=== PATIENT | male | born 1945 | race Caucasian/White ===

== ENCOUNTER 2017-08-02 12:34 | Emergency (ER) | payer MEDICARE, BC ==
[~2017-08-02 12:34] MED LIST: ACTOS15 PO; ADVAIR250 INH; ASAB PO; AVANDAMET1 TA4 PO; CARDU4 PO; CELEXA20 PO; CRESTOR20 MG PO; FENOGLIDE120 MG PO; FISH-EPA1000 MG PO; GLUCPH8 PO; LEVAQUIN5T PO; LOFIB160 PO; LOFIBRA160 MG PO; PRIM250 PO; PRIN10 PO; PROVHFA INH; SM FLAX SEED1000 MG OR; SYMBICORT 160/41 INH INH; VITAMIN B-121000 MC1 SL
[2017-08-02 13:35] LABS: BASOPHILS 0.2 %; BASOPHILS ABSOLUTE 0.02 10/3/uL (0.0-0.16); EOSINOPHILS ABSOLUTE 0.19 10/3/uL (0.0-0.53); HEMATOCRIT 37.8 % (40.0-51.0); HEMOGLOBIN 12.4 g/dL (13.6-17.8); IMMATURE GRANULOCYTES 0.2 %; IMMATURE GRANULOCYTES ABSOLUTE 0.02 10/3/uL (0.0-0.11); LYMPHOCYTES 9.8 %; LYMPHOCYTES ABSOLUTE 0.91 10/3/uL (0.67-4.30); MANUAL DIFF NO %; MEAN CORPUS HGB CONC 32.8 g/dL (32.0-36.0); MEAN CORPUSCULAR VOLUME 94.5 fL (80-100); MEAN PLATELET VOLUME 8.8 fL (9.2-13.0); MONOCYTES 6.4 %; NEUTROPHILS 81.4 %; NEUTROPHILS ABSOLUTE 7.57 10/3/uL (2.02-8.40); PLATELET COUNT 235 10/3/uL (150-400); RBC DISTRIBUTION WIDTH 13.4 % (12.0-16.0); WHITE BLOOD CELLS 9.3 10/3/uL (4.5-10.5)
[2017-08-02 13:43] LABS: INTERNATIONAL NORMAL RATI 1.2 UNITS (-); PARTIAL THROMBO TIME 33.3 SEC (22.5-37.2); PROTIME (NOT ORD) 14.7 SEC (12.0-14.5)
[2017-08-02 13:44] LABS: ALLENS TEST Pos; BE (BASE EXCESS) -0.3 MEQ/L (0 +/- 2.5); CARBOXYHEMOGLOBIN 1.7 % (0-3); DEVICE NC; HCO3 (ACTUAL BICARBONATE) 23.7 MEQ/L (23-27); HEMOBLOGIN CONTENT 13.1 G/DL (14-18); INSTRUMENT SERIAL # 8087; METHEMOGLOBIN 0.3 % (0-3); O2 CONTENT 17.3 VOL% (18-24); PCO2 (CO2 TENSION) 37 MMHG (35-45); PO2 (O2 TENSION) 75 MMHG (79-93); SAMPLE Arterial; pH 7.43 (7.37-7.43)
[2017-08-02 13:50] LABS: BUN (BLOOD UREA NITROGEN) 15 MG/DL (6-23); CALCIUM, SERUM 9.4 MG/DL (8.5-10.4); CHEST PAIN PROFILE TAT 0 Hrs 21 Mins; CHLORIDE, SERUM 102 MMOL/L (96-112); CO2 (CARBON DIOXIDE) 26 MMOL/L (24-34); CREATININE 1.08 MG/DL (0.70-1.30); GFR AFRICAN AMERICAN 78 ML/MIN (>=60); GFR NON AFRICAN AMERICAN 68 ML/MIN (>=60); GLUCOSE, SERUM 150 MG/DL (60-99); POTASSIUM, SERUM 5.3 MMOL/L (3.5-5.3); SODIUM, SERUM 136 MMOL/L (135-148); TROPONIN I <0.02 NG/ML (<0.05)
[2017-08-02 13:51] LABS: LACTATE 1.5 MMOL/L (0.3-2.4)
== END 2017-08-02 16:13 | disposition home or self-care (01) ==
LOC: ER 12:34
PROVIDERS: Emergency Medicine
DX: J44.1 Chronic obstructive pulmonary disease with (acute) exacerbation (principal); J06.9 Acute upper respiratory infection, unspecified; I10 Essential (primary) hypertension; E11.9 Type 2 diabetes mellitus without complications; Z87.891 Personal history of nicotine dependence; Z79.84 Long term (current) use of oral hypoglycemic drugs; Z79.82 Long term (current) use of aspirin; Z79.899 Other long term (current) drug therapy
CPT/HCPCS: 36600; 71010; 80048; 82805; 83605; 83735; 83880; 84484; 85025; 85610; 85730; 87040; 87070; 87205; 93005; 94640; 96365; 96375; 99285; J0456; J2930